=== PATIENT | female | born 1990 | race Asian ===

== ENCOUNTER 2019-02-20 07:58 | Inpatient (IN) ==
[2019-02-20] MEDS ORDERED: OXYTOCIN 30 UNITS/500 ML BAG IV PRN ×2 (08:21→09:27)
--- NOTE | 2019-02-20 08:25 | History & Physical Report ---
Date of Service February 20, 2019 Assessment & Plan (1) Supervision of normal first : 28 yo with no PMH here for spontaneous ROM this AM, confirmed by speculum exam on L&D floor at 8:30. Sitting comfortably in NAD at this time. Admitting for labor. Will continue to monitor EFM and toco. Pain management - epidural if patient requests. Continue close monitoring. Present on Admission?: Yes History of Present Illness Primary Care Provider: NO PCP Pt is a 28 yo F at 40w 2d presenting to L&D floor for SROM this morning at 6:30 AM. Denies having felt any contractions, but had large gush of clear fluid with some blood that has been constantly leaking since then. No chronic medical problems, takes no medications outside of daily vitamin. Denies any complications with this . Records from [place] OB visit in [place] show that she had a echo at [facility] on 10/30/18 to r/o VSD, found to be normal. Suggested post echo to follow up. Blood Type B Positive Antibody Screen NEGATIVE Hemoglobin 14.5 g/dL (12.0-16.0) Hematocrit 40.4 % (37-47) Mean Corpuscular Volume 86.1 fL (80-100) Platelet Count 270 K/uL (130-400) Rubella IgG Antibody Immune (Immune) Rapid Plasma Reagin Nonreactive (Nonreactive) Hepatitis B Surface Antigen Neg (Neg) HIV (1&2) Ab and P24 Ag, 4th Gener Neg (Neg) Failed 1 hr GTT, Passed 2 Hour GTT GBS negative OB Optional Labs: Chlamydia trachomatis RNA NOT DETECTED (NOT DETECTED) Neisseria gonorrhoeae RNA NOT DETECTED (NOT DETECTED) Denies Chest pain, SOB, headache, blurry vision, calf pain, dysuria, nausea, vomiting. Attests to lower extremity edema and some lightheadedness yesterday. Allergies Allergy/AdvReac Type Severity Reaction Status Date / Time No Known Drug Allergies Allergy Verified 02/14/19 10:51 Home Medications Home Medications Medication Instructions Recorded Confirmed Type vit no.[id number] 1 tab PO DAILY 02/20/19 02/20/19 History [ Vitamin] Patient History Medical History Abnormal biochemical finding on screening of mother (Resolved) Surgical History No pertinent past surgical history Family History Grandmother (Maternal) Hypertension Social History Smoking Status: Never smoker Hx Alcohol Use: No Review of Systems no fever, no chills and no fatigue no cough, no dyspnea and no wheezing + edema; no chest pain and no calf pain no abdominal pain, no nausea, no vomiting, no cramping, no constipation and no diarrhea/loose stools no dysuria and no difficulty urinating no back pain Physical Exam Constitutional: well developed and well nourished Respiratory: normal respiratory effort; no respiratory distress, no labored breathing and no cough Auscultation: no diminished lung sounds, no crackles, no rales, no rhonchi and no wheezes Cardiovascular: Rate/Rhythm: regular rate and regular rhythm Extremities: normal capillary refill and + pedal edema; no calf tenderness and no edema (2+ pitting edema BL to knees) Gastrointestinal (Abdomen): Inspection/Auscultation: + abdomen distended and normal bowel sounds Percussion/Palpation: abdomen nontender and no guarding Genitourinary: Speculum/Bimanual Exam: + uterus enlarged OB Exam Abdomen: + fundal height Fundus: + firm and + relation to umbilicus (high above umbilicus); not tender Cervical Exam per Dr. Dodson Dilation - 1 cm Effacement - 80% Station - -2 Results & Data Vital Signs (Past 12 Hours) Vital Signs Pulse BP 02/20/19 08:02 75 123/77 Code Status & VTE Plan VTE Prophylaxis Plan VTE Prophylaxis will be ordered: No Monitoring External Monitor Category 1 heart tracing Baseline HR 150 Frequent accelerations No decelerations Marked variability Tocodynamometer Having low amplitude contractions every 3-4 minutes Resident Activity Tracking Resident Involvement: Resident Care Provided Care Provided: OB Delivery
[2019-02-20 08:47] LABS: Hematocrit (blood only) 36.9 % (37-47); Hemoglobin 12.4 g/dL (12.0-16.0); Mean Corpuscular Hemoglobin 29.1 pg (25-34); Mean Corpuscular Volume 86.6 fL (80-100); Mean Platelet Volume 9.7 fL (7.4-10.4); Platelet Count 225 K/uL (130-400); RDW Coefficient of Variation 14.9 % (11.5-14.5); RDW Standard Deviation 45.8 fL (36.4-46.3); Red Blood Count 4.26 M/uL (4.2-5.4)
[2019-02-20 08:53] LABS: Mean Corpuscular Hgb Conc 33.6 g/dL (32-36)
--- NOTE | 2019-02-20 09:28 | Communication Note ---
Date of Service: February 20, 2019 Met patient and , discussed SROM confirmed by outgoing MD, and recommendation is for IOL. She is ney on toco though she doesn't feel them. Given frequency of ctx, will use pitocin. All questions answered. They agree with plan.
[2019-02-20] MEDS: LACTATED RINGER'S 1,000 ML IV PRN ×3 (10:05→16:53)
--- NOTE | 2019-02-20 12:36 | Anesthesiology Consultation ---
Date of Service February 20, 2019 Assessment & Plan (1) Encounter for pre-operative examination: Chart Review Chart Review: Patient NOT seen in Pre Admission Testing and Acceptable Risk for Labor Epidural Consults Requested none ASA ASA2 Proposed Anesthesia Anesthesia Type: Labor Epidural Risk / Benefits Reviewed With: PT / POA / Parent / Guardian, Accepts Plan and Informed Consent Obtained History Height/Weight Height: 5 ft 6 in Weight: 84.822 kg Allergies Allergy/AdvReac Type Severity Reaction Status Date / Time No Known Drug Allergies Allergy Verified 02/14/19 10:51 Medications Home Medications Medication Instructions Recorded Confirmed Last Taken vit no.[id number] 1 tab PO DAILY 02/20/19 02/20/19 02/13/19 08:00 [ Vitamin] Active Medications Generic Name Dose Route Start Last Admin Trade Name Freq PRN Reason Stop Dose Admin Lactated Ringer's 1,000 mls @ 125 mls/hr 02/20/19 08:21 02/20/19 12:33 Lr IV 02/22/19 08:20 999 mls/hr .Q8H PRN Infusion L&D Protocol Protocol Oxytocin 30 units in 500 mls @ 3 mls/hr 02/20/19 09:27 02/20/19 11:16 Pitocin IV 02/22/19 09:26 0.3 units/hr .Q24H PRN 5 mls/hr Labor Induction/Augmentation Titration Protocol 0.18 UNITS/HR NPO Date Last Intake of Fluids: 02/20/19 Time Last Intake of Fluids: 12:54 Date Last Intake of Solids: 02/19/19 Time Last Intake of Solids: 06:30 Past Medical History Medical History Abnormal biochemical finding on screening of mother (Resolved) Exercise / Class Metabolic Activity II 4-5 Yardwork/Stairs/Walk up hill Past Family History Family History Grandmother (Maternal) Hypertension Past Surgical History Surgical History No pertinent past surgical history Past Anesthesia History No Family Hx of Anesthesia Complications History of PONV No Hx of Motion Sickness Social History Smoking Status: Never smoker Do You Dip or Chew Tobacco: No Hx Alcohol Use: No Hx Substance Use: No Review of Systems Patient denies history of abnormal bleeding or bleeding disorder. Patient denies active use of anticoagulants other than low dose aspirin. Patient denies numbness, tingling or weakness in lower extremities. Physical Exam Vital Signs Last Vital Signs Temp 36.9 C 02/20/19 12:53 Pulse 70 02/20/19 12:35 Resp 22 02/20/19 12:53 BP 139/87 02/20/19 12:35 Constitutional not obese (Gravid uterus) ENMT Mouth: no TMJ abnormality and oral opening not small Thyromental Distance: > or= 3.5 Finger Breadths Mallampati Class: II Neck normal visual inspection; neck extension not limited Respiratory normal respiratory effort Auscultation: lungs clear to auscultation bilaterally Cardiovascular Rate/Rhythm: regular rate and regular rhythm Heart Sounds: no murmur Neurologic moves all extremities Motor/Sensory: no sensory deficit Psychiatric Orientation: alert and oriented x 3 Testing Laboratory Results 02/20/19 08:37
[2019-02-20] MEDS ORDERED: fentaNYL citrate 100 MCG/2 ML VIAL ONE (12:43)
[2019-02-20] MEDS ORDERED: BUPIVACAINE 0.25% 30 ML VIAL ONE (12:43)
[2019-02-20] MEDS ORDERED: ePHEDrine sulfate 50 MG/ML AMP ONE (12:43)
[2019-02-20] MEDS ORDERED: fentaNYL 2MCG/ML ROPIV 1.25MG/ML 100 ML BAG EPI ONE (12:44)
--- NOTE | 2019-02-20 13:31 | Labor Progress Brief Note ---
Date of Service February 20, 2019 Subjective Reason For Note: Routine Evaluation Comfortable with Epidural Assessment & Plan (1) PROM (premature rupture of membranes): IOL continues. Epidural now in place. Progress occurring. PROM onset of labor timing: unspecified duration between rupture of membranes and onset of labor PROM gestational age: full term Qualified Code(s): O42.92 - Full-term premature rupture of membranes, unspecified as to length of time between rupture and onset of labor Present on Admission?: Yes Physical Exam Genitourinary: Manual OB Exam: + cervical dilation 3 cm, + cervical effacement 90%, + station 0 and + amniotic fluid clear OB Exam Monitor Tracing: + category I Results & Data Vital Signs (Past 12 Hours) Vital Signs Temp Pulse Resp BP Pulse Ox 02/20/19 13:28 87 131/73 02/20/19 13:26 75 125/70 02/20/19 13:24 86 129/72 98 02/20/19 13:22 73 126/63 02/20/19 13:19 77 98 02/20/19 13:18 84 125/75 02/20/19 13:15 65 118/74 02/20/19 13:14 64 100 02/20/19 13:12 68 124/79 02/20/19 13:09 67 125/80 98 02/20/19 13:04 57 L 99 02/20/19 12:59 86 100 02/20/19 12:53 98.4 F 22 02/20/19 12:35 70 139/87 02/20/19 11:31 69 113/68 02/20/19 11:15 80 116/66 02/20/19 11:02 68 115/73 02/20/19 10:45 70 116/75 02/20/19 10:30 76 122/67 02/20/19 10:25 98.1 F 76 20 122/67 02/20/19 09:23 98.1 F 71 20 133/73 02/20/19 08:02 75 123/77
[2019-02-20] MEDS ORDERED: NALBUPHINE HCL INJ 10 MG/ML AMP IV PRN ×2 (13:47→22:22)
[2019-02-20] MEDS ORDERED: ePHEDrine sulfate 50 MG/ML AMP IV PRN ×2 (13:47→22:22)
[2019-02-20] MEDS ORDERED: NALOXONE HCL 1 MG in SODIUM CHLORIDE 0.9% 1000ML 1,000 ML IV PRN ×2 (13:47→22:22)
[2019-02-20] MEDS ORDERED: NALOXONE HCL 0.4 MG/1 ML VIAL/CARP IV PRN ×2 (13:47→22:22)
[2019-02-20] MEDS ORDERED: ONDANSETRON INJ 2 MG/ML 2 ML VIAL IV PRN ×2 (13:47→22:22)
[2019-02-20] MEDS ORDERED: fentaNYL 2MCG/ML ROPIV 1.25MG/ML 100 ML BAG EPI PRN (13:47)
[2019-02-20] MEDS ORDERED: DiphenhydrAMINE HCL 50 MG/ML VIAL IV PRN ×2 (13:47→22:22)
--- NOTE | 2019-02-20 20:37 | Labor Progress Brief Note ---
Date of Service February 20, 2019 Subjective Reason For Note: Routine Evaluation Comfortable with Epidural Assessment & Plan (1) Failure to progress in labor: Patient has pushed for two hours. Fetus remains in LOP position despite several different maternal pushing positions aimed to rotate the baby. She has created a small amount of caput, but baby remains no lower than +2 station and skull is easily displaced upwards for flow of amniotic fluid on exam. I counseled the patient and FOB on recommendation for due to suspected CPD. They were initially not ready to proceed to , preferring to cont inue to push. About fifteen minutes later, however, the RN notified me that the patient was requesting to move to . Consent process completed and all questions answered. Present on Admission?: Yes Physical Exam Genitourinary: Manual OB Exam: + cervical dilation 10 cm, + cervical effacement 100%, + station + 2 and + amniotic fluid clear OB Exam Monitor Tracing: + category I Results & Data Vital Signs (Past 12 Hours) Vital Signs Temp Pulse Resp BP Pulse Ox 02/20/19 20:31 76 97 02/20/19 20:28 81 117/64 02/20/19 20:26 87 94 02/20/19 20:21 92 H 96 02/20/19 20:17 75 87 L 02/20/19 20:16 93 H 97 02/20/19 20:13 83 126/79 02/20/19 20:11 90 98 02/20/19 20:06 96 H 97 02/20/19 20:01 100 H 96 02/20/19 19:59 99 H 148/65 H 02/20/19 19:56 114 H 96 02/20/19 19:51 89 97 02/20/19 19:50 99 H 83 L 02/20/19 19:46 97 H 96 02/20/19 19:44 96 H 124/79 02/20/19 19:41 107 H 97 02/20/19 19:36 98 H 94 02/20/19 19:31 99 H 94 02/20/19 19:29 101 H 125/64 02/20/19 19:26 99 H 99 02/20/19 19:20 113 H 96 02/20/19 19:15 122 H 97 02/20/19 19:14 113 H 142/62 H 02/20/19 19:12 99.0 F 18 02/20/19 19:11 100 H 124/60 02/20/19 19:10 145 H 96 02/20/19 19:05 98 H 95 02/20/19 19:00 141 H 96 02/20/19 18:58 96 H 126/61 02/20/19 18:55 92 H 94 02/20/19 18:50 107 H 76 L 02/20/19 18:45 93 H 80 L 02/20/19 18:43 96 H 126/68 02/20/19 18:40 114 H 95 02/20/19 18:39 95 H 91 02/20/19 18:34 92 H 95 02/20/19 18:33 96 H 94 02/20/19 18:29 92 H 96 02/20/19 18:28 96 H 134/74 02/20/19 18:26 127 H 88 L 02/20/19 18:24 108 H 96 02/20/19 18:21 96 H 89 L 02/20/19 18:19 92 H 97 02/20/19 18:14 89 97 02/20/19 18:13 80 129/71 02/20/19 18:09 80 96 02/20/19 18:04 82 96 02/20/19 17:59 79 131/77 96 02/20/19 17:54 89 97 02/20/19 17:49 79 96 02/20/19 17:44 79 125/66 96 02/20/19 17:39 90 97 02/20/19 17:34 81 96 02/20/19 17:29 87 97 02/20/19 17:28 99.0 F 82 20 128/68 02/20/19 17:24 81 96 02/20/19 17:19 86 96 02/20/19 17:14 91 H 122/72 97 02/20/19 17:09 88 98 02/20/19 17:04 90 98 02/20/19 16:59 80 97 02/20/19 16:58 81 124/70 02/20/19 16:54 81 96 02/20/19 16:49 86 98 02/20/19 16:44 71 116/68 96 02/20/19 16:39 77 96 02/20/19 16:34 81 98 10/30/19 16:29 78 96 02/20/19 16:28 73 117/63 02/20/19 16:24 71 96 02/20/19 16:19 73 96 02/20/19 16:14 75 95 02/20/19 16:13 73 120/64 02/20/19 16:09 71 96 02/20/19 16:04 73 95 02/20/19 15:59 74 115/63 96 02/20/19 15:54 74 96 02/20/19 15:49 78 96 02/20/19 15:44 72 123/74 98 02/20/19 15:39 73 98 02/20/19 15:34 81 97 02/20/19 15:29 73 98 02/20/19 15:28 72 126/77 02/20/19 15:24 74 97 02/20/19 15:19 74 97 02/20/19 15:14 70 97 02/20/19 15:12 78 128/76 02/20/19 15:09 76 97 02/20/19 15:04 75 97 02/20/19 14:59 72 97 02/20/19 14:58 98.4 F 81 16 119/81 02/20/19 14:54 82 98 02/20/19 14:49 81 98 02/20/19 14:44 74 97 02/20/19 14:42 75 122/77 02/20/19 14:39 78 98 02/20/19 14:34 75 97 02/20/19 14:29 73 97 02/20/19 14:28 86 116/73 02/20/19 14:24 83 98 02/20/19 14:19 79 97 02/20/19 14:14 77 98 02/20/19 14:13 77 127/78 02/20/19 14:09 74 98 02/20/19 14:04 73 97 02/20/19 13:59 84 20 110/75 99 02/20/19 13:54 82 97 02/20/19 13:49 98.4 F 78 16 97 02/20/19 13:44 91 H 98 02/20/19 13:42 78 136/74 02/20/19 13:40 85 137/75 02/20/19 13:39 81 98 02/20/19 13:38 81 133/74 02/20/19 13:36 84 131/72 02/20/19 13:34 77 131/72 97 02/20/19 13:32 81 127/75 02/20/19 13:30 83 131/72 02/20/19 13:29 82 97 02/20/19 13:28 87 131/73 02/20/19 13:26 75 125/70 02/20/19 13:24 86 129/72 98 02/20/19 13:22 73 126/63 02/20/19 13:19 77 98 02/20/19 13:18 84 125/75 02/20/19 13:15 65 118/74 02/20/19 13:14 64 100 02/20/19 13:12 68 124/79 02/20/19 13:09 67 125/80 98 02/20/19 13:04 57 L 99 02/20/19 12:59 86 100 02/20/19 12:53 98.4 F 22 02/20/19 12:35 70 139/87 02/20/19 11:31 69 113/68 02/20/19 11:15 80 116/66 02/20/19 11:02 68 115/73 02/20/19 10:45 70 116/75 02/20/19 10:30 76 122/67 02/20/19 10:25 98.1 F 76 20 122/67 02/20/19 09:23 98.1 F 71 20 133/73
[2019-02-20] MEDS ORDERED: LACTATED RINGER'S 1,000 ML IV SCH ×3 (20:45→23:37)
[2019-02-20] MEDS ORDERED: CEFAZOLIN 2000MG 2,000 MG/15 ML SYR IV SCH (21:00)
[2019-02-20] MEDS ORDERED: CITRIC ACID/SODIUM CITRATE 15 ML UDC PO SCH (21:00)
[2019-02-20] MEDS ORDERED: OXYTOCIN 10 UNITS/ML VIAL ONE ×2 (21:03→21:40)
[2019-02-20] MEDS ORDERED: LIDOCAINE/EPINEPHRINE 2% 1:200,000 20 ML SDV ONE (21:03)
[2019-02-20] MEDS ORDERED: ONDANSETRON INJ 2 MG/ML 2 ML VIAL ONE (21:03)
[2019-02-20] MEDS ORDERED: MoRPHine SULFATE PF 1 MG/ML 10 ML AMP/VIAL ONE (21:41)
[2019-02-20] MEDS ORDERED: SODIUM CHLORIDE 0.9% INJ 10 ML VIAL ONE (21:53)
[2019-02-20] MEDS ORDERED: KETOROLAC 30 MG/ML VIAL ONE (21:56)
--- NOTE | 2019-02-20 22:15 | Operative Report ---
PG Post Operative Report Pre & Post Diagnosis Operation Date: 02/20/19 20:30 Pre-Op Diagnosis: [facility]UP @ 40w2d PROM/IOL Failure to Descend Post-Op Diagnosis: Same I identified the patient and participated in the time-out.: Yes Procedure Operation Date: 02/20/19 20:30 <No data on this case meets the specified criteria> Primary Low Transverse Section with two layer closure Surgeon Vera Ray MD Prototype Model Maker RN Estimated Blood Loss 650 Findings Consistent with Post-Op Diagnosis Specimens Placenta, Cord blood Anesthesia Type Labor Epidural Complications none Disposition Accompanied Patient To Recovery: Yes Disposition: L&D Description of Procedure The patient was brought to the operating room and placed on the table in the supine position with a leftward tilt, then prepped and draped in standard steril e fashion. A hard time out was taken prior to proceeding. A pfannensteil incision was created sharply and carried down to the fascia using bovie electrocautery. The fascia was nicked and then extended using chao scissors. The edges of the fascia were grasped with Nicola clamps and elevated, then sharply and bluntly dissected off the underlying rectus. The midline of the rectus was identified and bluntly . The peritoneum was bluntly entered, and this entry was extended using pressure from the surgeon's hands. The bladder retractor was placed and the lower uterine segment was examined and found to be well developed. A bladder flap was created and the retractor was replaced behind this flap to protect the bladder. A transverse lower uterine incision was then created, with final entry to the uterine cavity made in a blunt manner with the surgeon's finger. Clear amniotic fluid was encountered. The head was elevated to the incision and delivered using mild fundal pr essure. The cord was doubly clamped and cut, then the vigorous infant was taken to the warmer for rn perioperative care. The placenta was manually extracted, then the uterus was gently exteriorized from the maternal abdomen. The cavity was cleared of clot and debris using a dry lap sponge. The angles of the incision were identified with allis clamps, and the hysterotomy was then repaired in running locked fashion using 0-vicryl suture, followed by a second imbricating layer. The tubes and ovaries were examined and found to be normal bilaterally. The posterior gutter was irrigated and cleared of clot and debris. The uterus was then gently re-internalized to the abdomen. Lateral gutters were cleared of clot and debris using a damp lap sponge, and a final exam of the hysterotomy revealed good hemostasis. The rectus muscles were allowed to reapproximate naturally. The angle of the fascia was grasped with a Nicola clamp and the fascia was then repaired in running non-locked fashion with 1-vicryl suture. At the completion of repair, the fascia was examined and found to be free of any defect. The subcutaneous tissue was copiously irrigated and then reapproximated using 3-0 chromic. The skin was then closed using 4-0 monocryl in a running subcuticular fashion and a dermabond dressing was applied. The spence was noted to be draining clear yellow urine as the patient was transferred back to her recovery room. I attest to the content of the Intraoperative Record and any orders documented therein. Any exceptions are noted below.
[2019-02-20] MEDS ORDERED: ACETAMINOPHEN 1000 MG/100 ML IV IV PRN (22:22)
[2019-02-20] MEDS ORDERED: HYDROmorphone INJ 0.5 MG/0.5 ML SYR IV PRN (22:22)
[2019-02-20] MEDS ORDERED: MoRPHine SULFATE PF 1 MG/ML 10 ML AMP/VIAL EPI ONE (22:22)
[2019-02-20] MEDS ORDERED: KETOROLAC 30 MG/ML VIAL IV PRN (22:22)
[2019-02-20] MEDS ORDERED: NALOXONE HCL 0.08 MG in SYRINGE 1.8 ML IV PRN (22:22)
[2019-02-20] MEDS ORDERED: LACTATED RINGER'S 500 ML IV PRN (22:22)
--- NOTE | 2019-02-20 22:25 | Anesthesia Procedure Note ---
Date of Service February 20, 2019 Anesthesia Post Epidural Note Vital Signs Vital Signs: Temp Pulse Resp BP Pulse Ox 37.2 C 99 H 18 136/72 99 02/20/19 19:12 02/20/19 22:21 02/20/19 19:12 02/20/19 22:11 02/20/19 22:21 Pain Intensity Abdomen: Pain Intensity: 1 Notes Mental Status: alert / awake / arousable and participated in evaluation Nausea / Vomiting: adequately controlled Pain: adequately controlled Airway Patency, RR, SpO2: stable & adequate BP & HR: stable & adequate Hydration State: stable & adequate Neuraxial Anesthesia: was administered and sensory block is resolving Anesthetic Complications: no major complications apparent and Pt Satisfied with anesthetic care Epidural: Removed without complications and With tip intact
[2019-02-20] MEDS ORDERED: SODIUM CHLORIDE 0.9% 1000ML 1,000 ML IV SCH (22:30)
[2019-02-20] MEDS ORDERED: NO NARCOTICS OR SEDATIVES SCH (22:30)
[2019-02-20] MEDS ORDERED: DC INTRASPINAL MORPHINE SCH (22:30)
[2019-02-20] MEDS ORDERED: MAGNESIUM HYDROXIDE SUSP 30 ML UDC PO PRN (23:37)
[2019-02-20] MEDS ORDERED: SUPERCREAM 0.870% 15 GM JAR EXT PRN (23:37)
[2019-02-20] MEDS ORDERED: DIPHTHERIA/TETANUS/PERTUSSIS 0.5 ML SYR/VIAL IM ONE (23:37)
[2019-02-20] MEDS ORDERED: SENNA 8.6 MG TAB PO PRN (23:37)
[2019-02-20] MEDS ORDERED: HYDROCORTISONE ACETATE 25 MG SUPP PR PRN (23:37)
[2019-02-20] MEDS ORDERED: BENZOCAINE 20% AER SPR 82.5 GM CAN EXT PRN (23:37)
[2019-02-20] MEDS ORDERED: OXYTOCIN 30 UNITS in LACTATED RINGER'S 1,000 ML IV SCH (23:37)
[2019-02-20] MEDS ORDERED: PROMETHAZINE HCL 25 MG in SODIUM CHLORIDE 0.9% 50 ML IV PRN (23:37)
[2019-02-21 07:04] LABS: Basophils # (auto) 0.01 K/uL (0-0.2); Basophils % (auto) 0.1 %; Eosinophils # (auto) 0.03 K/uL (0-0.5); Eosinophils % (auto) 0.2 %; Hematocrit (blood only) 29.4 % (37-47); Hemoglobin 10.2 g/dL (12.0-16.0); Immature Granulocytes # (auto) 0.03 K/uL (0.00-0.02); Immature Granulocytes % (auto) 0.2 %; Lymphocytes # (auto) 2.05 K/uL (1.2-3.4); Lymphocytes % (auto) 14.7 %; Mean Corpuscular Hemoglobin 29.6 pg (25-34); Mean Corpuscular Hgb Conc 34.7 g/dL (32-36); Mean Corpuscular Volume 85.2 fL (80-100); Mean Platelet Volume 9.3 fL (7.4-10.4); Monocytes # (auto) 0.87 K/uL (0.11-0.59); Monocytes % (auto) 6.3 %; Neutrophils # (auto) 10.93 K/uL (1.4-6.5); Neutrophils % (auto) 78.5 %; Platelet Count 226 K/uL (130-400); RDW Standard Deviation 46.2 fL (36.4-46.3); Red Blood Count 3.45 M/uL (4.2-5.4); White Blood Count 13.92 K/uL (4.8-10.8)
--- NOTE | 2019-02-21 07:21 | Obstetrical Progress Note ---
Date of Service February 21, 2019 Assessment & Plan (1) Supervision of normal first : 28 yo with no PMH presented yesterday for PROM, progressed to C/S after failure to progress appropriately. Sitting comfortably in NAD at this time, tired. . Goals of care today to rest, tolerate regular diet and start brief ambulation this evening. Subjective Ambulation: ambulating normally Voiding: no voiding problems Passing Gas:: Yes Diet Tolerance:: regular diet Feeding Type:: breast feeding Current Pain Level(1-10): 0 Constitutional: + fatigue; no fever and no chills Respiratory: no cough and no dyspnea No shortness of breath Cardiovascular: + edema; no chest pain and no calf pain Breast: no breast pain Gastrointestinal: + cramping; no abdominal pain, no nausea, no vomiting, no constipation and no diarrhea/loose stools Genitourinary (female): no dysuria and no difficulty urinating Neurologic: no headache(s) Physical Exam Constitutional well developed and well nourished Respiratory normal respiratory effort; no respiratory distress, no labored breathing and no cough Auscultation: no diminished lung sounds, no crackles, no rales, no rhonchi and no wheezes Cardiovascular Rate/Rhythm: regular rate and regular rhythm Extremities: normal capillary refill and + pedal edema; no calf tenderness and no edema (2+ pitting edema BL to knees) Gastrointestinal (Abdomen) Inspection/Auscultation: + abdomen distended and normal bowel sounds Percussion/Palpation: abdomen nontender and no guarding Genitourinary Speculum/Bimanual Exam: + uterus enlarged (decreasing in size) OB Exam Abdomen: + fundal height Fundus: + firm and + relation to umbilicus (just below umbilicus); not tender Results & Data Vital Signs (Past 12 Hours) Vital Signs Temp Pulse Pulse Resp BP BP Pulse Ox 02/21/19 05:30 16 95 02/21/19 04:30 16 96 02/21/19 03:30 36.9 C 83 18 115/71 98 02/21/19 02:30 79 20 122/73 96 02/21/19 01:30 79 16 117/69 95 02/21/19 01:00 77 18 116/70 96 02/21/19 00:30 37.1 C 73 18 121/74 95 02/21/19 00:16 75 108/60 96 02/21/19 00:15 37.4 C 18 02/21/19 00:11 76 97 02/21/19 00:06 79 99/54 L 96 02/21/19 00:01 76 95 02/20/19 23:56 79 112/58 L 97 02/20/19 23:51 79 97 02/20/19 23:46 82 112/53 L 97 02/20/19 23:45 18 02/20/19 23:41 82 97 02/20/19 23:36 84 115/57 L 95 02/20/19 23:31 79 96 02/20/19 23:26 82 112/60 96 02/20/19 23:21 85 98 02/20/19 23:20 80 116/60 02/20/19 23:16 83 98 02/20/19 23:15 18 02/20/19 23:11 86 96 02/20/19 23:07 83 91 02/20/19 23:06 86 128/60 92 02/20/19 23:05 18 02/20/19 23:01 91 H 95 02/20/19 22:56 93 H 145/73 H 92 02/20/19 22:55 37.5 C 18 02/20/19 22:52 94 H 92 02/20/19 22:51 93 H 95 02/20/19 22:46 99 H 124/72 100 02/20/19 22:45 88 88 H 124/72 02/20/19 22:41 91 H 98 02/20/19 22:36 87 122/67 97 02/20/19 22:35 18 122/67 02/20/19 22:31 92 H 96 02/20/19 22:26 95 H 129/75 94 02/20/19 22:25 18 129/76 97 02/20/19 22:21 99 H 99 02/20/19 22:16 101 H 99 02/20/19 22:15 36.8 C 97 H 18 136/72 98 02/20/19 22:11 100 H 136/72 97 02/20/19 21:11 78 96 02/20/19 21:06 93 H 96 02/20/19 21:01 81 95 02/20/19 20:58 80 121/70 02/20/19 20:56 81 96 02/20/19 20:51 76 97 02/20/19 20:46 80 97 02/20/19 20:44 85 126/76 02/20/19 20:41 84 97 02/20/19 20:36 84 97 02/20/19 20:31 76 97 02/20/19 20:28 81 117/64 02/20/19 20:26 87 94 02/20/19 20:21 92 H 96 02/20/19 20:17 75 87 L 02/20/19 20:16 93 H 97 02/20/19 20:13 83 126/79 02/20/19 20:11 90 98 02/20/19 20:06 96 H 97 02/20/19 20:01 100 H 96 02/20/19 19:59 99 H 148/65 H 02/20/19 19:56 114 H 96 02/20/19 19:51 89 97 02/20/19 19:50 99 H 83 L 02/20/19 19:46 97 H 96 02/20/19 19:44 96 H 124/79 02/20/19 19:41 107 H 97 02/20/19 19:36 98 H 94 02/20/19 19:31 99 H 94 02/20/19 19:29 101 H 125/64 02/20/19 19:26 99 H 99 02/20/19 19:20 113 H 96 Pulse Ox 02/21/19 05:30 02/21/19 04:30 02/21/19 03:30 02/21/19 02:30 02/21/19 01:30 02/21/19 01:00 02/21/19 00:30 95 02/21/19 00:16 02/21/19 00:15 02/21/19 00:11 02/21/19 00:06 02/21/19 00:01 02/20/19 23:56 02/20/19 23:51 02/20/19 23:46 02/20/19 23:45 02/20/19 23:41 02/20/19 23:36 02/20/19 23:31 02/20/19 23:26 02/20/19 23:21 02/20/19 23:20 02/20/19 23:16 02/20/19 23:15 02/20/19 23:11 02/20/19 23:07 02/20/19 23:06 02/20/19 23:05 02/20/19 23:01 02/20/19 22:56 02/20/19 22:55 02/20/19 22:52 02/20/19 22:51 02/20/19 22:46 02/20/19 22:45 02/20/19 22:41 02/20/19 22:36 02/20/19 22:35 02/20/19 22:31 02/20/19 22:26 02/20/19 22:25 02/20/19 22:21 02/20/19 22:16 02/20/19 22:15 02/20/19 22:11 02/20/19 21:11 02/20/19 21:06 02/20/19 21:01 02/20/19 20:58 02/20/19 20:56 02/20/19 20:51 02/20/19 20:46 02/20/19 20:44 02/20/19 20:41 02/20/19 20:36 02/20/19 20:31 02/20/19 20:28 02/20/19 20:26 02/20/19 20:21 02/20/19 20:17 02/20/19 20:16 02/20/19 20:13 02/20/19 20:11 02/20/19 20:06 02/20/19 20:01 02/20/19 19:59 02/20/19 19:56 02/20/19 19:51 02/20/19 19:50 02/20/19 19:46 02/20/19 19:44 02/20/19 19:41 02/20/19 19:36 02/20/19 19:31 02/20/19 19:29 02/20/19 19:26 02/20/19 19:20 Resident Activity Tracking Resident Involvement: Resident Care Provided Care Provided: OB Delivery
[2019-02-21] MEDS: FERROUS SULFATE 325 MG TAB PO SCH (08:11)
[2019-02-21] MEDS: DOCUSATE SODIUM 100 MG CAP PO SCH ×2 (08:11→20:32)
[2019-02-21] MEDS: PRENATAL VITAMIN 1 TAB PO SCH (08:11)
[2019-02-21] MEDS: SIMETHICONE 80 MG CHEW PO SCH ×4 (08:14→20:33)
[2019-02-21] MEDS ORDERED: KETOROLAC 30 MG/ML VIAL IV PRN (16:22)
[2019-02-21] MEDS ORDERED: ONDANSETRON INJ 2 MG/ML 2 ML VIAL IV PRN (16:22)
[2019-02-21] MEDS ORDERED: DiphenhydrAMINE HCL 50 MG/ML VIAL IV PRN (16:22)
[2019-02-21] MEDS ORDERED: MEPERIDINE HCL 50 MG/ML CARP IV PRN (16:22)
[2019-02-21] MEDS: OXYCODONE/ACETAMINOPHEN 5mg/325mg TAB PO PRN ×2 (16:26→20:32)
[2019-02-21] MEDS: IBUPROFEN 600 MG TAB PO PRN ×2 (16:27→20:32)
[2019-02-22] MEDS: IBUPROFEN 600 MG TAB PO PRN ×4 (02:52→20:30)
[2019-02-22] MEDS: OXYCODONE/ACETAMINOPHEN 5mg/325mg TAB PO PRN ×4 (02:53→20:30)
[2019-02-22 06:32] LABS: Hematocrit (blood only) 29.7 % (37-47); Hemoglobin 10.1 g/dL (12.0-16.0)
--- NOTE | 2019-02-22 07:11 | Obstetrical Progress Note ---
Date of Service February 22, 2019 pod 2 Doing well. Minimal bleeding. Pain well controlled no ext pain Assessment & Plan (1) Failure to progress in labor: Cont current care Ambulate, Physical Exam Constitutional WD/WN, vitals as above Respiratory normal respiratory effort, lungs clear to auscultation Gastrointestinal (Abdomen) uterus firm, ext neg Results & Data Vital Signs (Past 12 Hours) Vital Signs Temp Pulse Pulse Resp BP BP Pulse Ox 02/21/19 23:20 98.1 F 78 18 126/74 94 02/21/19 19:45 98.2 F 86 18 118/71 96
[2019-02-22] MEDS: FERROUS SULFATE 325 MG TAB PO SCH (09:39)
[2019-02-22] MEDS: SIMETHICONE 80 MG CHEW PO SCH ×4 (09:40→20:30)
[2019-02-22] MEDS: PRENATAL VITAMIN 1 TAB PO SCH (09:40)
[2019-02-22] MEDS: DOCUSATE SODIUM 100 MG CAP PO SCH ×2 (09:40→20:29)
--- NOTE | 2019-02-22 10:38 | Anesthesiology Progress Note ---
Date of Service February 22, 2019 Anesthesia Post Procedure Vital Signs Vital Signs: Temp Pulse Pulse Resp BP BP Pulse Ox 02/22/19 08:00 36.6 C 76 20 131/92 99 02/21/19 23:20 36.7 C 78 18 126/74 94 02/21/19 19:45 36.8 C 86 18 118/71 96 02/21/19 16:15 37.3 C 88 18 122/77 97 02/21/19 15:15 18 96 02/21/19 14:30 20 97 02/21/19 13:30 20 96 02/21/19 12:30 18 97 02/21/19 12:00 37.0 C 90 20 116/71 02/21/19 11:30 20 96 Pain Intensity Abdomen: Pain Intensity: 3 Transfer of Care Handoff Completed per policy Notes Mental Status: alert / awake / arousable Nausea / Vomiting: adequately controlled Pain: adequately controlled Airway Patency, RR, SpO2: stable & adequate BP & HR: stable & adequate Hydration State: stable & adequate Neuraxial Anesthesia: was administered and sensory block resolved Anesthetic Complications: no major complications apparent
[2019-02-23] MEDS: IBUPROFEN 600 MG TAB PO PRN ×2 (00:48→07:58)
[2019-02-23] MEDS: OXYCODONE/ACETAMINOPHEN 5mg/325mg TAB PO PRN ×2 (00:48→07:57)
--- NOTE | 2019-02-23 06:45 | Obstetrical Progress Note ---
Date of Service February 23, 2019 Assessment & Plan (1) S/P section: doing well. ready for d/c home, instructions reviewed. script sent, checked on pa pdmp and no issues identified. f/u 6wk pp check. Day #:: 3 Subjective Ambulation: ambulating normally Voiding: no voiding problems Passing Gas:: Yes Diet Tolerance:: regular diet Lochia:: Small Feeding Type:: breast feeding denies pain, ready for d/c home Physical Exam Constitutional WD/WN, vitals as above Respiratory normal respiratory effort, lungs clear to auscultation Cardiovascular Rate/Rhythm: regular rate and regular rhythm Gastrointestinal (Abdomen) Inspection/Auscultation: abdomen normal to inspection Percussion/Palpation: abdomen soft; abdomen nontender and no guarding FF 1 down, incision c/d/i with dermabond Musculoskeletal nt calves Neurologic grossly normal Psychiatric A+Ox3, euthymic affect Results & Data Vital Signs (Past 12 Hours) Vital Signs Temp Pulse Resp BP Pulse Ox 02/22/19 23:10 97.9 F 72 16 118/71 97
[2019-02-23] MEDS: SIMETHICONE 80 MG CHEW PO SCH (07:57)
[2019-02-23] MEDS: DOCUSATE SODIUM 100 MG CAP PO SCH (07:57)
[2019-02-23] MEDS: PRENATAL VITAMIN 1 TAB PO SCH (07:57)
[2019-02-23] MEDS: FERROUS SULFATE 325 MG TAB PO SCH (07:57)
--- NOTE | 2019-02-25 08:24 | Discharge Summary ---
Date of Service February 25, 2019 Admission HPI Per Admitting Provider Pt is a 28 yo F at 40w 2d presenting to L&D floor for SROM this morning at 6:30 AM. Denies having felt any contractions, but had large gush of clear fluid with some blood that has been constantly leaking since then. No chronic medical problems, takes no medications outside of daily vitamin. Denies any complications with this . Records from first OB visit in [place] show that she had a echo at [facility] [place] on 10/30/18 to r/o VSD, found to be normal. Suggested post echo to follow up. Blood Type B Positive Antibody Screen NEGATIVE Hemoglobin 14.5 g/dL (12.0-16.0) Hematocrit 40.4 % (37-47) Mean Corpuscular Volume 86.1 fL (80-100) Platelet Count 270 K/uL (130-400) Rubella IgG Antibody Immune (Immune) Rapid Plasma Reagin Nonreactive (Nonreactive) Hepatitis B Surface Antigen Neg (Neg) HIV (1&2) Ab and P24 Ag, 4th Gener Neg (Neg) Failed 1 hr GTT, Passed 2 Hour GTT GBS negative OB Optional Labs: Chlamydia trachomatis RNA NOT DETECTED (NOT DETECTED) Neisseria gonorrhoeae RNA NOT DETECTED (NOT DETECTED) Denies Chest pain, SOB, headache, blurry vision, calf pain, dysuria, nausea, vomiting. Attests to lower extremity edema and some lightheadedness yesterday. Discharge Data Consultations 02/20/19 08:21 Consult Anesthesiology Stat 02/20/19 20:32 Consult Anesthesiology Stat Procedures Performed Operation Date: 02/20/19 20:30 Actual Procedures p Section in LD - Vera Ray MD Hospital Course (1) Failure to progress in labor: Patient with PROM, IOL, pushed 2 hours without descent. Moved to section for cephalopelvic disproportion and failure to descend. Uncomplicated delivery; see op report for details. Unremarkable postop course and discharged home on POD#3 with percocet prn and instructions for 6 week f/u.
== END 2019-02-23 13:55 | disposition home or self-care (01) | DRG 788 ==
LOC: OPB 07:58 → 4S1 08:00 → 4N 02-21 00:20